=== PATIENT | female | born 1990 | race Asian ===

== ENCOUNTER → 2018-11-17 | Outpatient (CLI) | payer OTHER ==
--- NOTE | 2018-11-17 11:00 | RADIOLOGY REPORT (SQ) ---
EXAM DESCRIPTION: NM HIDA SCAN WITH CCK COMPLETED DATE/TIME: 11/17/2018 10:50 am REASON FOR STUDY: RUQ PAIN (R10.11) R10.11 RIGHT UPPER QUADRANT PAIN COMPARISON: None. RADIONUCLIDE AND DOSE: DOSAGE RADIONUCLIDE: 5.43 millicuries Tc99m Mebrofenin. DOSAGE CCK: 1.23 micrograms. DOSAGE MORPHINE: Not required. The route of agent administration: Intravenous TECHNIQUE: Serial imaging right upper quadrant up to 60 minutes following injection of radionuclide. CCK injected after gallbladder visualized. LIMITATIONS: None. FINDINGS: LIVER: Normal visualization without areas of photopenia. INTRAHEPATIC BILE DUCTS: Normal size and no delay in visualization. COMMON BILE DUCT: Normal without dilatation. GALLBLADDER: Normal visualization. Calculated ejection fraction of 13%. Normal range is greater th an 35%. PHYSICAL RESPONSE: Patients presenting complaint were reproduced following CCK administration. OTHER: No other significant finding. IMPRESSION: 1. ABNORMAL STUDY. GALLBLADDER EJECTION FRACTION of 13% (normal range is greater than 35 %). EVIDENCE FOR BILIARY DYSKINESIS. 2. Patient's presenting complaints were produced following CCK administration. TECHNICAL DOCUMENTATION: JOB ID: [id number] [employer]- All Rights Reserved Reading location - IP/workstation name: [email or web address]
== END ==
LOC: RAD 07:51
PROVIDERS: ATTEND Student in an Organized Health Care Education/Training Program
DX: R10.11 Right upper quadrant pain (principal)
CPT/HCPCS: 78227; J2805; A9537; Q9969

== ENCOUNTER 2019-08-30 11:12 | Observation (INO) | payer OTHER ==
[2019-08-30] MEDS ORDERED: NORMAL SALINE 1000 ML 1,000 ML IV ONE (12:07)
--- NOTE | 2019-08-30 12:14 | ER Document Report ---
ED General - General Chief Complaint: Abdominal Pain Stated Complaint: UPPER ABDOMINAL PAIN Time Seen by Provider: 08/30/19 12:04 Primary Care Provider: ARGENIS BOSE DO [Primary Care Provider] - Follow up as needed TRAVEL OUTSIDE OF THE [place] IN LAST 30 DAYS: No - HPI Notes: 29-year-old female to the emergency department with complaints of right upper quadrant and epigastric abdominal pain that began last night and lasted through till this morning. She states that she is being followed by Dr. Rios for her gallbladder disease. She states that she called him this morning and was told to come to the emergency department for further evaluation and admission. She states she did not have any sort of fever. She states a gallbladder attack last night was pretty severe. She states anytime she tries to eat this morning she starts to feel like she is can have another attack. She denies any chest pain, shortness of breath, diarrhea, urinary symptoms. I did speak with Dr. Rios after her arrival and he requests lab work and ultrasound. I will call him back once we get these results. - Related Data Allergies/Adverse Reactions: amoxicillin Allergy (Verified 08/30/19 12:05) azithromycin Allergy (Verified 08/30/19 12:05) Penicillins Allergy (Verified 08/30/19 12:05) Home Medications: control Past Medical History - General Information source: Patient - Social History Smoking Status: Never Smoker Frequency of alcohol use: None Drug Abuse: None Lives with: Family Family History: Reviewed & Not Pertinent Patient has suicidal ideation: No Patient has homicidal ideation: No Review of Systems - Review of Systems Constitutional: denies: Chills, Fever Cardiovascular: denies: Chest pain, Palpitations, Dizziness, Lightheaded, Edema Respiratory: denies: Cough, Short of breath Gastrointestinal: Abdominal pain, Nausea. denies: Diarrhea Genitourinary: No symptoms reported Female Genitourinary: No symptoms reported Musculoskeletal: No symptoms reported Skin: No symptoms reported Hematologic/Lymphatic: No symptoms reported Neurological/Psychological: No symptoms reported -: Yes All other systems reviewed and negative Physical Exam - Vital signs Vitals: Temp Pulse Resp BP Pulse Ox 98.6 F 70 18 155/75 H 100 08/30/19 11:25 08/30/19 11:25 08/30/19 11:25 08/30/19 11:25 08/30/19 11:25 - General General appearance: Appears well, Alert In distress: None - HEENT Head: Normocephalic, Atraumatic Eyes: Normal Pupils: PERRL - Respiratory Respiratory status: No respiratory distress Chest status: Nontender. No: Accessory muscle use Breath sounds: Normal. No: Rales, Rhonchi, Stridor, Wheezing Chest palpation: Normal - Cardiovascular Rhythm: Regular Heart sounds: Normal auscultation Murmur: No - Abdominal Inspection: Normal Distension: No distension Bowel sounds: Normal Tenderness: Tender - Mild tenderness to palpation over the epigastrium and right upper quadrant. Organomegaly: No organomegaly - Back Back: Normal, Nontender. 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 No: Pronator drift Sensory: Normal - Psychological Associated symptoms: Normal affect, Normal mood - Skin Skin Temperature: Warm Skin Moisture: Dry Skin Color: Normal Course - Re-evaluation Re-evalutation: 08/30/[address] Rios. He will admit the patient. He will place orders. Would like her to go to a surgical floor. Updated patient about plan and she agrees. Impression: Right upper quadrant abdominal pain, history of gallbladder disease. Dr. Rios to admit the patient. - Vital Signs Vital signs: Temp Pulse Resp BP Pulse Ox 98.7 F 78 18 160/69 H 100 08/30/19 19:40 08/30/19 19:40 08/30/19 19:40 08/30/19 19:40 08/30/19 19:40 - Laboratory Result Diagrams: 08/30/19 12:25 08/30/19 12:25 Laboratory results interpreted by me: 08/30/19 12:25 Lymph % (Auto) 12.4 L - Diagnostic Test Radiology reviewed: Image reviewed, Reports reviewed Discharge - Discharge Clinical Impression: Right upper quadrant abdominal pain, Gall bladder disease Condition: Stable Disposition: ADMITTED INPATIENT Admitting Provider: Surgicalist - Dr. Rios Unit Admitted: Surgical Floor Referrals: ARGENIS BOSE, [Primary Care Provider] - Follow up as needed
[2019-08-30 12:43] LABS: ABSOLUTE EOSINOPHILS # (AUTO) 0.1 10^3/uL (0.0-0.6); ABSOLUTE LYMPHOCYTES (AUTO) 0.8 10^3/uL (0.5-4.7); ABSOLUTE MONOCYTES (AUTO) 0.5 10^3/uL (0.1-1.4); BASOPHILS % (AUTO) 0.5 % (0-2); EOSINOPHILS % (AUTO) 1.6 % (0-6); HEMATOCRIT 41.4 % (36.0-47.0); HEMOGLOBIN 14.3 g/dL (12.0-15.5); LYMPHOCYTES % (AUTO) 12.4 % (13-45); MEAN CORPUSCULAR HEMOGLOBIN 33.3 pg (27.0-33.4); MEAN CORPUSCULAR HGB CONC 34.7 g/dL (32.0-36.0); MEAN CORPUSCULAR VOLUME 96 fl (80-97); MONOCYTES % (AUTO) 7.6 % (3-13); PLATELET COUNT 165 10^3/uL (150-450); SEGMENTED NEUTROPHILS % (AUTO) 77.9 % (42-78); TOTAL CELLS COUNTED % (AUTO) 100 %; WHITE BLOOD COUNT 6.4 10^3/uL (4.0-10.5)
[2019-08-30 13:05] LABS: ALBUMIN 4.1 g/dL (3.5-5.0); ALKALINE PHOSPHATASE 53 U/L (38-126); ANION GAP 8 (5-19); ASPARTATE AMINO TRANSFERASE 27 U/L (14-36); BILIRUBIN,TOTAL 1.3 mg/dL (0.2-1.3); BLOOD UREA NITROGEN 11 mg/dL (7-20); CALCIUM 9.2 mg/dL (8.4-10.2); CARBON DIOXIDE 24 mmol/L (22-30); CHLORIDE 105 mmol/L (98-107); GLUCOSE 78 mg/dL (75-110); POTASSIUM 4.1 mmol/L (3.6-5.0); TOTAL PROTEIN 7.1 g/dL (6.3-8.2)
--- NOTE | 2019-08-30 14:34 | RADIOLOGY REPORT (SQ) ---
EXAM DESCRIPTION: U/S ABDOMEN LIMITED W/O DOP COMPLETED DATE/TIME: 08/30/2019 1:50 pm REASON FOR STUDY: gallbladder US, RUQ abd pain COMPARISON: None. TECHNIQUE: Dynamic and static grayscale images acquired of the abdomen and recorded on PACS. Additio nal selected color Doppler and spectral images recorded. LIMITATIONS: None. FINDINGS: PANCREAS: No masses. Visualized pancreatic duct normal caliber. LIVER: No masses. Echotexture normal. LIVER VASCULATURE: Normal directional flow of the main portal vein and hepatic veins. GALLBLADDER: No stones. Normal wall thickness. No pericholecystic fluid. ULTRASOUND-DETECTED NERI'S SIGN: Negative. INTRAHEPATIC DUCTS AND COMMON DUCT: CBD and intrahepatic ducts normal caliber. No filling defects. INFERIOR VENA CAVA: Normal flow. AORTA: No aneurysm. RIGHT KIDNEY: Normal size. Normal echogenicity. No solid or suspicious masses. No hydronephrosis. No calcifications. PERITONEAL AND RIGHT PLEURAL SPACE: No ascites or effusions. OTHER: No other significant findings. IMPRESSION: NORMAL RIGHT UPPER QUADRANT ULTRASOUND. TECHNICAL DOCUMENTATION: JOB ID: [id number]- All Rights Reserved Reading location - IP/workstation name: [email or web address]
[2019-08-30] MEDS ORDERED: MORPHINE SULFATE 10 MG/ML INJ IV PRN (14:38)
[2019-08-30] MEDS: ONDANSETRON HCL INJ/PF 4 MG/2 ML SDV IV PRN (16:47)
[2019-08-30] MEDS: DEXTROSE 5%-LACTATED RINGERS 1,000 ML IV PRN (16:47)
--- NOTE | 2019-08-30 17:17 | PDOC H&P ---
History of Present Illness Admission Date/PCP: 08/30/19 14:48 ARGENIS BOSE DO Patient complains of: right upper quadrant pain, nausea, and vomiting History of Present Illness: ADALBERTO HUMPHREY is a 29 year old female with a 1 day history of persistent, unrelenting, bilious nausea and vomiting with right upper quadrant pain. The patient is a known history of biliary dyskinesia, who has been controlled with diet. Yesterday she ate Ramen noodles, and had a severe attack of right upper quadrant abdominal pain. She has vomited multiple times over the last 24 hours. The patient cannot get any relief. She denies fevers, chills, chest pain, shortness of breath, reflux, jaundice, dizziness, orthostasis, fatigue, or malaise. Her pain does radiate around to her shoulder blade. She rates her pain as 6 out of 10. Her pain is worse with eating, it improves slightly, if she remains n.p.o. Past Medical History Past Medical History: Uterine fibroids, vaginal bleeding due to fibroids. Past Surgical History Past Surgical History: Reports: Other - Fibroidectomy. Social History Lives with: Family Smoking Status: Never Smoker Frequency of Alcohol Use: Occasional Hx Recreational Drug Use: No Hx Prescription Drug Abuse: No Family History Family History: Reviewed & Not Pertinent Parental Family History Reviewed: Yes Children Family History Reviewed: Yes Sibling(s) Family History Reviewed.: Yes Medication/Allergy Home Medications: Levonorgestrel-Ethin Estradiol [Kurvelo] 1 each PO DAILY 08/30/19 Allergies/Adverse Reactions: amoxicillin Allergy (Verified 08/30/19 12:05) azithromycin Allergy (Verified 08/30/19 12:05) Penicillins Allergy (Verified 08/30/19 12:05) Review of Systems Constitutional: ABSENT: anorexia, chills, fatigue, fever(s), headache(s) Eyes: ABSENT: visual disturbances Nose, Mouth, and Throat: ABSENT: sore throat Cardiovascular: ABSENT: chest pain Respiratory: ABSENT: cough Gastrointestinal: PRESENT: abdominal pain, nausea, vomiting. ABSENT: heartburn, hematemesis, hematochezia, melena Genitourinary: ABSENT: dysuria Musculoskeletal: PRESENT: back pain - Right shoulder Integumentary: ABSENT: pruritus, rash Neurological: ABSENT: confusion, convulsions, dizziness Psychiatric: ABSENT: anxiety, depression Endocrine: ABSENT: cold intolerance, heat intolerance Hematologic/Lymphatic: PRESENT: easy bleeding - Abnormal uterine bleeding.. ABSENT: easy bruising Physical Exam Vital Signs: Temp Pulse Resp BP Pulse Ox 98.6 F 70 18 155/75 H 100 08/30/19 11:25 08/30/19 11:25 08/30/19 11:25 08/30/19 11:25 08/30/19 11:25 Intake & Output 08/29/19 08/30/19 08/31/19 06:59 06:59 06:59 Intake Total 1000 Balance 1000 Weight 64.2 kg General appearance: PRESENT: no acute distress, cooperative Head exam: PRESENT: atraumatic, normocephalic Eye exam: PRESENT: EOMI, PERRLA. ABSENT: scleral icterus Mouth exam: PRESENT: moist, neck supple Neck exam: ABSENT: meningismus, tenderness, thyromegaly, tracheal deviation Respiratory exam: PRESENT: unlabored. ABSENT: chest wall tenderness, tachypnea, wheezes Cardiovascular exam: ABSENT: tachycardia Pulses: PRESENT: normal radial pulses Vascular exam: PRESENT: normal capillary refill GI/Abdominal exam: PRESENT: soft, tenderness - Right upper quadrant. ABSENT: distended, rebound, rigid Rectal exam: PRESENT: deferred Extremities exam: ABSENT: clubbing Musculoskeletal exam: ABSENT: deformity Neurological exam: PRESENT: alert, awake, oriented to person, oriented to place, oriented to time, oriented to situation, CN II-XII grossly intact. ABSENT: motor sensory deficit Psychiatric exam: ABSENT: agitated, anxious, depressed Focused psych exam: ABSENT: delusional Skin exam: ABSENT: cyanosis, erythema, jaundice Results Laboratory Results: 08/30/19 12:25 08/30/19 12:25 08/30/19 08/30/19 12:25 12:25 WBC 6.4 RBC 4.30 Hgb 14.3 Hct 41.4 MCV 96 MCH 33.3 MCHC 34.7 RDW 13.0 Plt Count 165 Seg Neutrophils % 77.9 Sodium 137.2 Potassium 4.1 Chloride 105 Carbon Dioxide 24 Anion Gap 8 BUN 11 Creatinine 0.71 Est GFR ( Amer) > 60 Glucose 78 Calcium 9.2 Total Bilirubin 1.3 AST 27 Alkaline Phosphatase 53 Total Protein 7.1 Albumin 4.1 Lipase 42.7 Impressions: Abdomen Ultrasound 08/30/19 12:12 IMPRESSION: NORMAL RIGHT UPPER QUADRANT ULTRASOUND. Assessment & Plan - Diagnosis (1) Biliary colic Is this a current diagnosis for this admission?: Yes (2) Nausea and vomiting Qualifiers: Vomiting type: unspecified Vomiting Intractability: intractable Qualified Code(s): R11.2 - Nausea with vomiting, unspecified Is this a current diagnosis for this admission?: Yes - Plan Summary Plan Summary: This is a 29-year-old female with known gallbladder disease. She has a 24-hour history of right upper quadrant pain, exacerbated by fatty meal. She has had persistent nausea and vomiting the to the point where she cannot keep anything down. I believe the patient is experiencing worsening biliary colic. I have admitted the patient for IV hydration, and cholecystectomy. Plan to perform cholecystectomy tomorrow. The patient has been counseled regarding the risks and benefits of surgery. Informed consent was obtained, and all questions were answered.
[2019-08-30] MEDS ORDERED: KETOROLAC TROMETHAMINE INJ/PF 30 MG/1 ML SDV ONE (20:08)
[2019-08-30] MEDS: KETOROLAC TROMETHAMINE INJ/PF 30 MG/1 ML SDV IV SCH (21:38)
[2019-08-30] MEDS: FAMOTIDINE 20 MG TABLET PO SCH (21:48)
[2019-08-31] MEDS: DEXTROSE 5%-LACTATED RINGERS 1,000 ML IV PRN ×2 (00:34→18:45)
[2019-08-31] MEDS: KETOROLAC TROMETHAMINE INJ/PF 30 MG/1 ML SDV IV SCH (05:20)
[2019-08-31] MEDS ORDERED: BUPIVACAINE HCL 0.25 % INJ/PF (2.5 MG/1 ML) 30 ML VIAL ONE ×2 (08:07→09:53)
--- NOTE | 2019-08-31 09:36 | PDOC PROGRESS REPORT ---
Subjective Progress Note for:: 08/31/19 Subjective:: 29-year-old female with biliary colic and persistent nausea and vomiting. She still complains of right upper quadrant pain, nausea, and vomiting. She denies chest pain, shortness of breath, fevers, chills, dizziness, orthostasis, malaise, or fatigue. Reason For Visit: PERSISTENT NAUSEA AND VOMITING. BILIARY COLIC Physical Exam Vital Signs: Temp Pulse Resp BP Pulse Ox 97.9 F 58 L 16 115/62 100 08/31/19 07:09 08/31/19 07:09 08/31/19 07:09 08/31/19 07:09 08/31/19 07:09 Intake & Output 08/30/19 08/31/19 09/01/19 06:59 06:59 06:59 Intake Total 1778 Balance 1778 Weight 63.9 kg General appearance: PRESENT: no acute distress, cooperative Head exam: PRESENT: atraumatic, normocephalic Eye exam: PRESENT: EOMI, PERRLA. ABSENT: scleral icterus Mouth exam: PRESENT: moist, neck supple Neck exam: ABSENT: meningismus, tenderness, thyromegaly, tracheal deviation Respiratory exam: PRESENT: unlabored. ABSENT: chest wall tenderness, tachypnea, wheezes Cardiovascular exam: ABSENT: tachycardia Vascular exam: PRESENT: normal capillary refill GI/Abdominal exam: PRESENT: soft, tenderness - Mild right upper quadrant/epigastric tenderness.. ABSENT: distended, firm, rigid Rectal exam: PRESENT: deferred Extremities exam: ABSENT: clubbing Musculoskeletal exam: ABSENT: deformity Neurological exam: PRESENT: alert, awake, oriented to person, oriented to place, oriented to time, oriented to situation Psychiatric exam: ABSENT: agitated, anxious, depressed Focused psych exam: ABSENT: delusional Skin exam: ABSENT: cyanosis, erythema, jaundice Results Laboratory Results: 08/30/19 12:25 08/30/19 12:25 08/30/19 08/30/19 12:25 12:25 WBC 6.4 RBC 4.30 Hgb 14.3 Hct 41.4 MCV 96 MCH 33.3 MCHC 34.7 RDW 13.0 Plt Count 165 Seg Neutrophils % 77.9 Sodium 137.2 Potassium 4.1 Chloride 105 Carbon Dioxide 24 Anion Gap 8 BUN 11 Creatinine 0.71 Est GFR ( Amer) > 60 Glucose 78 Calcium 9.2 Total Bilirubin 1.3 AST 27 Alkaline Phosphatase 53 Total Protein 7.1 Albumin 4.1 Lipase 42.7 Impressions: Abdomen Ultrasound 08/30/19 12:12 IMPRESSION: NORMAL RIGHT UPPER QUADRANT ULTRASOUND. Assessment & Plan - Diagnosis (1) Biliary colic Is this a current diagnosis for this admission?: Yes (2) Nausea and vomiting Qualifiers: Vomiting type: unspecified Vomiting Intractability: intractable Qualified Code(s): R11.2 - Nausea with vomiting, unspecified Is this a current diagnosis for this admission?: Yes - Time Time Spent with patient: Less than 15 minutes - Plan Summary Plan Summary: There is a 29-year-old female with biliary colic and persistent nausea and vomiting. I have offered the patient cholecystectomy to treat her symptoms. The patient has agreed to this. Risks/benefits discussed, informed consent obtained, and all questions answered.
[2019-08-31] MEDS ORDERED: ROCURONIUM BROMIDE INJ 50 MG/5 ML VIAL IV ONE (09:40)
[2019-08-31] MEDS ORDERED: SUCCINYLCHOLINE CHLORIDE INJ 200 MG/10 ML VIAL ONE (09:40)
[2019-08-31] MEDS ORDERED: PROPOFOL INJ 200 MG/20 ML VIAL IV ONE (09:41)
[2019-08-31] MEDS ORDERED: ONDANSETRON HCL INJ/PF 4 MG/2 ML SDV ONE (09:41)
[2019-08-31] MEDS ORDERED: MIDAZOLAM 2 MG/2 ML INJ ONE (09:41)
[2019-08-31] MEDS ORDERED: FENTANYL CITRATE INJ/PF 100 MCG/2 ML AMPUL ONE (09:41)
[2019-08-31] MEDS ORDERED: DEXAMETHASONE SOD PHOSPHATE INJ 4 MG/1 ML VIAL ONE (09:41)
[2019-08-31] MEDS ORDERED: SUGAMMADEX SODIUM 200 MG/2 ML SDV IV ONE (09:41)
[2019-08-31] MEDS ORDERED: FENTANYL CITRATE INJ/PF 100 MCG/2 ML AMPUL IV PRN ×3 (09:48)
[2019-08-31] MEDS ORDERED: MORPHINE SULFATE 10 MG/ML INJ IV PRN (09:48)
[2019-08-31] MEDS ORDERED: MEPERIDINE HCL/PF INJ 25 MG/1 ML DISP.SYRIN IV PRN (09:48)
[2019-08-31] MEDS ORDERED: PROMETHAZINE HCL INJ 25 MG/1 ML VIAL IV PRN ×2 (09:48)
[2019-08-31] MEDS ORDERED: DIPHENHYDRAMINE HCL 50 MG/ML VIAL IV PRN (09:48)
[2019-08-31] MEDS ORDERED: ONDANSETRON HCL INJ/PF 4 MG/2 ML SDV IV PRN (09:48)
[2019-08-31] MEDS: FAMOTIDINE 20 MG TABLET PO SCH ×2 (10:24→21:16)
[2019-08-31] MEDS ORDERED: CLINDAMYCIN PHOSPHATE INJ 300 MG/2 ML SDV ONE ×2 (11:00→11:09)
--- NOTE | 2019-08-31 11:53 | Operative Report ---
Nonrecallable Operative Report DATE OF SURGERY: 08/31/19 PREOPERATIVE DIAGNOSIS: 1. Biliary colic. 2. Persistent nausea and vomiting. POSTOPERATIVE DIAGNOSIS: Acalculus cholecystitis. OPERATION: Laparoscopic cholecystectomy SURGEON: TAMAR LOWERY ANESTHESIA: GA TISSUE REMOVED OR ALTERED: Gallbladder COMPLICATIONS: None apparent ESTIMATED BLOOD LOSS: Minimal PROCEDURE: Drains/implants: None. Procedure in detail: After informed consent was obtained, the patient was brought to the operating room and laid in the supine position. The area of the abdomen was prepped and draped in a normal sterile fashion. A curvilinear infraumbilical incision was created with a 15 blade scalpel. Dissection was carried through the subcutaneous tissues using sharp and blunt dissection. The cicatrix was grasped with a Canelo clamp, retracted upwards, and the linea alba fascia was incised sharply. The abdomen was entered sharply. The balloon trocar was inserted, pneumoperitoneum was achieved. A subxiphoid 5 mm port was then placed under direct laparoscopic visualization. 2 more 5 mm ports were placed in the right upper quadrant in similar fashion. Atraumatic graspers were placed through the 5 mm ports. The gallbladder was retracted cephalad and laterally. Dissection was begun in the triangle of [place]. The cystic duct and cystic artery were fully visualized and skeletonized, seeing the liver through the triangle. Once the critical view of safety was obtained, the cystic duct and cystic artery were clipped and cut with laparoscopic instruments. The gallbladder was then removed from the liver using Bovie electrocautery. 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 The gallbladder was then grasped with a large clamp, and removed through the umbilical port. The camera was reinserted, and the hilum was inspected. The hilum was found to be free of any leakage of blood or bile. After that, the 5 mm trochars were removed under direct laparoscopic visualization. The infraumbilical trocar was removed, pneumoperitoneum was relieved. The infraumbilical fascia was closed using 0 Vicryl suture in [id number] fashion. The overlying skin was closed using 4-0 Vicryl Rapide suture in subcuticular fashion. A dressing was placed, and the procedure was concluded. All sponge, instrument, needle counts were correct x2. Condition: Stable.
[2019-08-31] MEDS: IBUPROFEN 800 MG TABLET PO SCH ×2 (12:30→17:31)
[2019-08-31] MEDS: HYDROCODONE/ACETAMINOPHEN 10-325 MG TABLET PO PRN ×2 (13:28→21:17)
[2019-08-31] MEDS: ONDANSETRON HCL INJ/PF 4 MG/2 ML SDV IV PRN ×2 (15:30→19:18)
[2019-08-31] MEDS: SIMETHICONE 80 MG TAB.CHEW PO PRN ×2 (16:31→21:17)
[2019-09-01] MEDS: HYDROCODONE/ACETAMINOPHEN 10-325 MG TABLET PO PRN (02:36)
[2019-09-01] MEDS: DEXTROSE 5%-LACTATED RINGERS 1,000 ML IV PRN (04:16)
[2019-09-01] MEDS: IBUPROFEN 800 MG TABLET PO SCH ×2 (08:04→13:01)
--- NOTE | 2019-09-01 10:03 | PDOC DISCHARGE SUMMARY ---
General - Admit/Disc Date/PCP Admission Date/Primary Care Provider: 08/30/19 14:48 ARGENIS BOSE DO Discharge Date: 09/01/19 - Discharge Diagnosis Final Diagnosis: Acalculous cholecystitis - Assessment Summary: This a 29-year-old female admitted to hospital with right upper quadrant pain, and biliary colic. She has a known history of biliary dyskinesia. She had persistent nausea and vomiting, with an inability to keep down solids or liquids. She was admitted for hydration and cholecystectomy. At the time of surgery, cholecystitis was identified. The patient underwent laparoscopic cholecystectomy. She was taken to the floor in stable condition. On postoperative day #1, the patient was ambulating, tolerating a diet, and feeling well. At this time she is medically fit for discharge. - Additional Information Resuscitation Status: Full Code Discharge Diet: As Tolerated Discharge Activity: No Lifting Over 10 Pounds, No Lifting/Push/Pulling Referrals: ARGENIS BOSE DO [Primary Care Provider] - Follow up as needed Prescriptions: Ibuprofen [Motrin 800 mg Tablet] 800 mg PO MEALS #42 tablet Hydrocodone/Acetaminophen [Stephenson 10-325 mg Tablet] 1 tab PO Q6HP PRN #15 tablet PRN Reason: For Pain Ondansetron HCl/Pf [Zofran Inj/Pf 4 mg/2 ml Sdv] 4 mg IV Q4HP PRN #15 vial PRN Reason: For Nausea/Vomiting Home Medications: Levonorgestrel-Ethin Estradiol [Kurvelo Tablet] 1 each PO DAILY 08/30/19 Hydrocodone/Acetaminophen [Stephenson 10-325 mg Tablet] 1 tab PO Q6HP PRN #15 tablet 09/01/19 Ibuprofen [Motrin 800 mg Tablet] 800 mg PO MEALS #42 tablet 09/01/19 Ondansetron HCl/Pf [Zofran Inj/Pf 4 mg/2 ml Sdv] 4 mg IV Q4HP PRN #15 vial 09/01/19 History of Present Illiness History of Present Illness: ADALBERTO HUMPHREY is a 29 year old female with a 1 day history of persistent, unrelenting, bilious nausea and vomiting with right upper quadrant pain. The patient is a known history of biliary dyskinesia, who has been controlled with diet. Yesterday she ate Ramen noodles, and had a severe attack of right upper quadrant abdominal pain. She has vomited multiple times over the last 24 hours. The patient cannot get any relief. She denies fevers, chills, chest pain, shortness of breath, reflux, jaundice, dizziness, orthostasis, fatigue, or malaise. Her pain does radiate around to her shoulder blade. She rates her pain as 6 out of 10. Her pain is worse with eating, it improves slightly, if she remains n.p.o. Physical Exam Vital Signs: Temp Pulse Resp BP Pulse Ox 98.0 F 52 L 16 113/56 L 100 09/01/19 07:26 09/01/19 07:26 09/01/19 07:26 09/01/19 07:26 09/01/19 07:26 Intake & Output 08/31/19 09/01/19 09/02/19 06:59 06:59 06:59 Intake Total 1778 2902 Output Total 5 Balance 1778 2897 Weight 63.9 kg 63.9 kg Results Laboratory Results: WBC 6.4 10^3/uL (4.0-10.5) 08/30/19 12:25 RBC 4.30 10^6/uL (3.72-5.28) 08/30/19 12:25 Hgb 14.3 g/dL (12.0-15.5) 08/30/19 12:25 Hct 41.4 % (36.0-47.0) 08/30/19 12:25 MCV 96 fl (80-97) 08/30/19 12:25 MCH 33.3 pg (27.0-33.4) 08/30/19 12:25 MCHC 34.7 g/dL (32.0-36.0) 08/30/19 12:25 RDW 13.0 % (11.5-14.0) 08/30/19 12:25 Plt Count 165 10^3/uL (150-450) 08/30/19 12:25 Lymph % (Auto) 12.4 % (13-45) L 08/30/19 12:25 [place] % (Auto) 7.6 % (3-13) 08/30/19 12:25 Eos % (Auto) 1.6 % (0-6) 08/30/19 12:25 Baso % (Auto) 0.5 % (0-2) 08/30/19 12:25 Absolute Neuts (auto) 5.0 10^3/uL (1.7-8.2) 08/30/19 12:25 Absolute Lymphs (auto) 0.8 10^3/uL (0.5-4.7) 08/30/19 12:25 Absolute Monos (auto) 0.5 10^3/uL (0.1-1.4) 08/30/19 12:25 Absolute Eos (auto) 0.1 10^3/uL (0.0-0.6) 08/30/19 12:25 Absolute Basos (auto) 0.0 10^3/uL (0.0-0.2) 08/30/19 12:25 Seg Neutrophils % 77.9 % (42-78) 08/30/19 12:25 Sodium 137.2 mmol/L (137-145) 08/30/19 12:25 Potassium 4.1 mmol/L (3.6-5.0) 08/30/19 12:25 Chloride 105 mmol/L (98-107) 08/30/19 12:25 Carbon Dioxide 24 mmol/L (22-30) 08/30/19 12:25 Anion Gap 8 (5-19) 08/30/19 12:25 BUN 11 mg/dL (7-20) 08/30/19 12:25 Creatinine 0.71 mg/dL (0.52-1.25) 08/30/19 12:25 Est GFR ( Amer) > 60 (>60) 08/30/19 12:25 Est GFR (MDRD) Non-Af > 60 (>60) 08/30/19 12:25 Glucose 78 mg/dL (75-110) 08/30/19 12:25 Calcium 9.2 mg/dL (8.4-10.2) 08/30/19 12:25 Total Bilirubin 1.3 mg/dL (0.2-1.3) 08/30/19 12:25 Direct Bilirubin 0.0 mg/dL (0.0-0.4) 08/30/19 12:25 Neonat Total Bilirubin Not Reportable 08/30/19 12:25 Neonat Direct Bilirubin Not Reportable 08/30/19 12:25 Neonat Indirect Bili Not Reportable 08/30/19 12:25 AST 27 U/L (14-36) 08/30/19 12:25 ALT 12 U/L (<35) 08/30/19 12:25 Alkaline Phosphatase 53 U/L (38-126) 08/30/19 12:25 Total Protein 7.1 g/dL (6.3-8.2) 08/30/19 12:25 Albumin 4.1 g/dL (3.5-5.0) 08/30/19 12:25 Lipase 42.7 U/L (23-300) 08/30/19 12:25 Urine HCG, Qual NEGATIVE (NEGATIVE) 08/31/19 09:59 Impressions: Abdomen Ultrasound 08/30/19 12:12 IMPRESSION: NORMAL RIGHT UPPER QUADRANT ULTRASOUND.
[2019-09-01] MEDS: FAMOTIDINE 20 MG TABLET PO SCH (10:30)
[2019-09-01] MEDS: ONDANSETRON HCL INJ/PF 4 MG/2 ML SDV IV PRN (13:05)
[2019-09-01 14:51] VITALS: BP 128/67
== END 2019-09-01 16:00 | disposition home or self-care (01) ==
LOC: ER 11:12 → INTOOBSV 14:48 → EH 14:48 → 2N 15:41
PROVIDERS: ADMIT Surgery; ATTEND Surgery
DX: K81.1 Chronic cholecystitis (principal); N93.9 Abnormal uterine and vaginal bleeding, unspecified; Z79.3 Long term (current) use of hormonal contraceptives; Z98.890 Other specified postprocedural states; Z87.42 Personal history of other diseases of the female genital tract
CPT/HCPCS: 99285; 96360; 36415; 83690; 85025; 81025; 80053; 88304 ×2; 76705; 47562; G0378 ×3; J2250; J3490 ×3; J1100; J3010; J1885 ×2; J2270; J0330; J2405 ×3; J7121 ×3; J7030; J2704

== ENCOUNTER → 2020-07-05 | Outpatient (CLI) | payer OTHER ==
[2020-07-05 12:13] VITALS: BP 123/84
--- NOTE | 2020-07-05 12:13 | ER [facility] ASSESSMENT REPORT ---
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 - Symptoms Subjective Fever([place] feverish): No Chills: No Muscule Aches: Yes Runny Nose: No Sore Throat: No Cough (New or worsening chronic cough): Yes Shortness of breath: No Nausea or Vomiting: No Headache: Yes Abdominal Pain: No Diarrhea(3 or more loose stools in last 24 hours): No - Do you have any of the following Chronic lung disease: Asthma or emphysema or COPD: No Cystic Fibrosis: No Diabetes: No High Blood Pressure: No Cardiovascular Disease: No Chronic Kidney Disease: No Chronic Liver Disease: No Chronic blood disorder like Sickle Cell Disease: No Weak immune system due to disease or medication: No Neurologic condition that limits movement: No Developmental delay - Moderate to Severe: No Recent (within past 2 weeks) or current : No Morbid Obesity (>100 pounds over ideal weight): No - Objective Temperature: 98.8 F Pulse Rate: 56 Respiratory Rate: 18 Blood Pressure: 123/84 O2 Sat by Pulse Oximetry: 99 Objective: Given above, testing performed: If Testing Performed: Test Specimen Type Sent to General - General Information source: Patient Notes: Patient presents to the [facility] for screening for the wang virus. 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 Patient has had body aches, cough and headache for the past 3 days. - Related Data Allergies/Adverse Reactions: amoxicillin Allergy (Verified 08/30/19 12:05) azithromycin Allergy (Verified 08/30/19 12:05) Penicillins Allergy (Verified 08/30/19 12:05) Past Medical History - General Information source: Patient - Social History Smoking Status: Never Smoker Family History: Reviewed & Not Pertinent Renal/ Medical History: Reports: Other - Fibroid uterus Psychiatric Medical History: Denies: Hx Depression Past Surgical History: Reports: Hx Gynecologic Surgery - uterine fibroid, Other - Fibroidectomy. Physical Exam - Notes Notes: The patient was evaluated during the global Covid 19 pandemic, and that diagnosis was suspected/considered upon their initial presentation. Their evaluation, treatment and testing was consistent with current guidelines for patients who present with complaints or symptoms that may be related to Covid 19. Full physical exam could not be performed due to covid 19 isolation protocols. Constitutional: Nontoxic appearance, no acute distress Eyes: Nonicteric, extraocular movements intact, sclera clear ENT: Posterior pharynx without exudates, no tonsillar hypertrophy Cardiovascular: Heart rate and rhythm regular, no JVD Respiratory: Breath sounds clear bilaterally, nonlabored breathing, no use of accessory muscles, no tachypnea Gastrointestinal: Abdomen not distended Muculoskeletal: Moves all extremities well Skin: Normal color Neuro: Awake alert oriented, normal speech Psych: Normal mood and affect Diagnostic Results Laboratory Results: Patient presents with symptoms worrisome for possible Covid 19. Patient does not have emergency worrying symptoms such as difficulty breathing, shortness of breath, chest pain, pressure, confusion or cyanosis. Patient appears suitable for discharge as they are not of an advanced age, do not have any chronic medical conditions such as diabetes, CAD, immune deficiency, chronic lung disease or chronic kidney disease. Patient's vital signs are stable and patient is nontoxic in appearance. Good return precautions have been discussed with patient, patient verbalized understanding and is agreeable with discharge plan of care at this time. Patient Education/Counseling Counseling/Education: Patient was provided with discharge information including: As a person under investigation for Covid 19, the [place] department of Health and Human Services, division of public health advises you to adhere to the following guidance until your test results are reported to you. If your test result is positive, you will receive additional information from your provider and your local health department at that time. Remain at home until you are cleared by the health provider or public health authorities. Keep a log of visitors to your home, notify any visitors to your home of your isolation status. If you plan to move to a new address or leave the [facility], notify the local health department in your County. Call your doctor or seek care if you have an urgent medical need. Before seeking medical care, call ahead to get instructions from the provider before arriving at the medical office clinic or hospital. Notify them that you are being tested for the virus that causes Covid 19 so that arrangements can be made, as necessary, to prevent transmission to others in the healthcare setting. Next, notify the local health department in your county. If a medical emergency arises and you need to call 911, inform the first responders that you are being tested for the virus that causes Covid 19. Next, notify the local health department in your county. [facility] Discharge - Discharge Clinical Impression: Encounter for screening laboratory testing for COVID-19 virus Condition: Stable Disposition: Home; Selfcare
[2020-07-05 13:31] LABS: A TYPE INFLUENZA AG NEGATIVE (NEGATIVE); B INFLUENZA AG NEGATIVE (NEGATIVE)
== END ==
LOC: RDC 11:19
PROVIDERS: ATTEND Nurse Practitioner Family
DX: U07.1 COVID-19 (principal); R05 Cough; M79.10 Myalgia, unspecified site; R51.9 Headache, unspecified; D25.9 Leiomyoma of uterus, unspecified; Z88.0 Allergy status to penicillin; Z88.1 Allergy status to other antibiotic agents
CPT/HCPCS: 87070; 87880; 87635; 87804; C9803; 99201; 99211

== ENCOUNTER → 2020-08-04 | Outpatient (CLI) | payer OTHER ==
[~2020-08-04] MED LIST: COVID-19 VACCINE (PFIZER)/PF 30 MCG/0.3 ML VIAL IM ONE; EPINEPHRINE INJ/PF 1 MG/1 ML AMPULE IM PRN
== END ==
LOC: EMPHEALTH 07:33
PROVIDERS: ATTEND Internal Medicine
DX: Z23 Encounter for immunization (principal)
CPT/HCPCS: 91300

== ENCOUNTER → 2020-08-25 | Outpatient (CLI) | payer OTHER ==
--- OUTSIDE RECORDS SUMMARY | 2020-08-25 07:55 | XMS REPORT ---
:1990 [facility] Address [address] [address] Care Team Providers Name Role Phone Unavailable Unavailable Unavailable Allergies, Adverse Reactions, Alerts This patient has no known allergies or adverse reactions. Medications This patient has no known medications. Problems This patient has no known problems. Procedures This patient has no known procedures. Results Test Description Test Time Test Comments Text Results Atomic Results Result Comments SARS-CoV-2 RNA Resp Ql ALIYAH+probe 2020-07-07 00:00:00 Test Item Value Reference Range Comments SARS-CoV-2 RNA Resp Ql ALIYAH+probe Detected [facility] Case ID: (test code = 89864-0) [id number] SARS-CoV-2 RNA Resp Ql [id number] 00:00:00 Test Item Value Reference Range Comments SARS-CoV-2 RNA Resp Ql Not detected [facility] Case ALIYAH+probe (test code = ID: [id number]) Social History This patient has no known social history. Vital Signs This patient has no known vital signs.
== END ==
LOC: EMPHEALTH 07:51
PROVIDERS: ATTEND Internal Medicine
DX: Z23 Encounter for immunization (principal)
CPT/HCPCS: 91300